=== PATIENT | female | born 1985 | race American Indian/Alaskan Native ===

== ENCOUNTER 2020-10-04 16:36 | Outpatient (CLI) | payer MEDICAID ==
[2020-10-04 17:38] VITALS: BP 130/71
== END 2020-10-04 19:03 | disposition home or self-care (01) ==
LOC: TRG 16:36 → APU 16:38 → TRG 19:03
PROVIDERS: ATTEND Obstetrics & Gynecology
DX: O26.893 Other specified pregnancy related conditions, third trimester (principal); R10.9 Unspecified abdominal pain; Z3A.38 38 weeks gestation of pregnancy
CPT/HCPCS: 59025

== ENCOUNTER 2020-10-12 21:51 | Outpatient (CLI) | payer MEDICAID ==
[2020-10-12 22:18] VITALS: BP 127/71
== END 2020-10-12 23:05 | disposition home or self-care (01) ==
LOC: TRG 21:51 → APU 22:00 → TRG 23:05
PROVIDERS: ATTEND Obstetrics & Gynecology
DX: O62.4 Hypertonic, incoordinate, and prolonged uterine contractions (principal); O26.893 Other specified pregnancy related conditions, third trimester; M54.5 Low back pain; N89.8 Other specified noninflammatory disorders of vagina; Z3A.29 29 weeks gestation of pregnancy
CPT/HCPCS: 59025